=== PATIENT | female | born 1995 | race Caucasian/White ===

== ENCOUNTER 2018-08-08 03:09 | Emergency (ER) | payer OTHER ==
[2018-08-08 03:18] VITALS: BP 100/68
--- NOTE | 2018-08-08 04:03 | ER Document Report ---
ED General - General Chief Complaint: Leg Pain Stated Complaint: LEG PROBLEM Time Seen by Provider: 08/08/18 03:53 Notes: Patient is a 23-year-old female presents with complaint of pain behind her right knee. Pain started tonight. Said came on suddenly. She says that does not feel like a muscular pain to her. She has not felt pain like this before. She is concerned because she was started recently on control. She denies any chest pain. No shortness of breath. No other complaints at this time. TRAVEL OUTSIDE OF THE [place] IN LAST 30 DAYS: No - Related Data Allergies/Adverse Reactions: ciprofloxacin [From Cipro] Allergy (Verified 08/08/18 03:13) codeine Allergy (Verified 08/08/18 03:13) sulfamethoxazole [From Bactrim] Allergy (Verified 08/08/18 03:13) trimethoprim [From Bactrim] Allergy (Verified 08/08/18 03:13) Past Medical History - Social History Smoking Status: Unknown if Ever Smoked Frequency of alcohol use: None Drug Abuse: None Family History: Reviewed & Not Pertinent Review of Systems - Review of Systems Notes: My Normal Review Basic REVIEW OF SYSTEMS: CONSTITUTIONAL : Denies fever, chills, or sweats. Denies recent illness. CARDIOVASCULAR: Denies chest pain. RESPIRATORY: Denies cough, cold, or chest congestion. Denies shortness of breath, difficulty breathing, or wheezing. GASTROINTESTINAL: Denies abdominal pain. Denies nausea, vomiting, or diarrhea. Denies constipation. Last BM: MUSCULOSKELETAL: Behind right knee. SKIN: Denies rash or skin lesions. NEUROLOGICAL: Denies sensory or motor loss. ALL OTHER SYSTEMS REVIEWED AND NEGATIVE. Physical Exam - Vital signs Vitals: Temp Pulse Resp BP Pulse Ox 98.6 F 66 16 100/68 98 08/08/18 03:16 08/08/18 03:16 08/08/18 03:16 08/08/18 03:16 08/08/18 03:16 - Notes Notes: General Appearance: Well nourished, alert, cooperative, no acute distress, no obvious discomfort. Well-appearing. Vitals: reviewed, See vital signs table. Extremities: strength 5/5 in all extremities, good pulses in all extremities, pain is not reproducible to palpation behind the right leg. No edema in the legs. No tenderness to palpation of either legs. Skin: warm, dry, appropriate color, no rash Neuro: speech clear, oriented x 3, normal affect, responds appropriately to questions. Course - Re-evaluation Re-evalutation: 08/08/18 04:33 Informed patient I agree that we do have to do a test to rule out a blood clot. 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 She requests an outpatient test to be performed. I did write a prescription for an outpatient venous Doppler to be performed. I offered her Lovenox and explained to her the risks and benefits of Lovenox. Patient says she would rather not have Lovenox at this time and wants to wait to see the test results before going forward with any treatment. Patient will be discharged was strongly encouraged to return to ER immediately if she has worsening pain, any chest pain, shortness of breath, or leg swelling. Patient agrees the plan will be discharged home. Dictation of this chart was performed using voice recognition software; therefore, there may be some unintended grammatical errors. - Vital Signs Vital signs: Temp Pulse Resp BP Pulse Ox 98.6 F 66 16 100/68 98 08/08/18 03:16 08/08/18 03:16 08/08/18 03:16 08/08/18 03:16 08/08/18 03:16 Discharge - Discharge Clinical Impression: Leg pain Qualifiers: Laterality: right Qualified Code(s): M79.604 - Pain in right leg Condition: Good Disposition: HOME, SELF-CARE Additional Instructions: You need a venous Doppler ultrasound to rule out the possibility of blood clot in your leg. Please call the number on the prescription. You may get a voi cemail. If you do get a voicemail please leave a message to have him call you back. If you do not hear back from them after 1-2 hours please call the number again. Please return to ER immediately if you have chest pain, difficulty breathing, swelling in your leg, or worsening pain in your leg. Forms: Follow-Up Outpatient Testing
--- NOTE | 2018-08-08 16:51 | ER Document Report ---
Doctor's Note Notes: 08/08/18 16:50 Received call from cardiovascular lab, that venous duplex of the right lower extremity was negative on this patient, she was discharged home from the cardiovascular lab.
== END 2018-08-08 04:05 | disposition home or self-care (01) ==
LOC: ER 03:09
DX: M79.604 Pain in right leg (principal); M25.561 Pain in right knee
CPT/HCPCS: 99283

== ENCOUNTER → 2018-08-08 | Outpatient (CLI) | payer OTHER ==
--- NOTE | 2018-08-09 01:24 | RADIOLOGY REPORT (SQ) ---
EXAM DESCRIPTION: US EXTREMITY VEINS UNILATERAL RIGHT COMPLETED DATE/TME: 08/08/2018 00:00 CLINICAL HISTORY: 23 years, Female, RLE PAIN COMPARISON: None. TECHNIQUE: LIMITATIONS: None. FINDINGS: The common femoral, femoral, popliteal, posterior tibial and peroneal veins are patent and compressible. Venous Doppler waveforms are unremarkable. IMPRESSION: No evidence of deep venous thrombosis. copyright 2010 [employer]- All Rights Reserved
== END ==
LOC: SP 15:51
PROVIDERS: ATTEND Emergency Medicine
DX: M79.604 Pain in right leg (principal)
CPT/HCPCS: 93971

== ENCOUNTER 2019-05-19 16:25 | Emergency (ER) | payer OTHER ==
[2019-05-19 16:29] VITALS: BP 118/80
--- NOTE | 2019-05-19 16:49 | ER Document Report ---
HPI - HPI Patient complains to provider of: rash Time Seen by Provider: 05/19/19 16:43 Onset: Other Onset/Duration: Worse Quality of pain: Throbbing Severity: Moderate Pain Level: 3 Context: 24-year-old female presented to ED for flank area. These are not shingles. She states she has checked for bedbugs and she does not know what is going on. Patient is alert oriented respirations regular and unlabored no other symptoms noted. Associated Symptoms: Other Exacerbated by: Other - palpation Relieved by: Denies Similar symptoms previously: Yes Recently seen / treated by doctor: Yes - ROS ROS below otherwise negative: Yes - CONSTITUTIONAL Constitutional: DENIES: Fever, Chills - EENT EENT: DENIES: Sore Throat, Ear Pain, Nasal Drainage-Clear, Nasal Drainage- Purulent, Congestion, Eye problems - NEURO Neurology: DENIES: Headache, Weakness, Vision blurred, Dizzinesss / Vertigo - CARDIOVASCULAR Cardiovascular: DENIES: Chest pain - RESPIRATORY Respiratory: DENIES: Trouble Breathing, Coughing - GASTROINTESTINAL Gastrointestinal: DENIES: Abdominal Pain, Nausea, Patient vomiting, Diarrhea, Constipation, Black / Bloody Stools - URINARY Urinary: DENIES: Dysuria, Urgency, Frequency - REPRODUCTIVE Reproductive: DENIES: :, Postmenopausal, Abnormal bleeding / discharge - MUSCULOSKELETAL Musculoskeletal: DENIES: Extremity pain, Back Pain, Neck Pain, Swelling - DERM Skin Color: Normal Skin Problems: Rash Past Medical History - General Information source: Patient - Social History Smoking Status: Never Smoker Frequency of alcohol use: None Drug Abuse: None Lives with: Family Family History: Reviewed & Not Pertinent Patient has suicidal ideation: No Patient has homicidal ideation: No - Past Medical History Cardiac Medical History: Reports: None Pulmonary Medical History: Reports: Hx Asthma EENT Medical History: Reports: None Neurological Medical History: Reports: None Endocrine Medical History: Reports: None Renal/ Medical History: Reports: None Malignancy Medical History: Reports: None GI Medical History: Reports: None Musculoskeletal Medical History: Reports None Skin Medical History: Reports None Psychiatric Medical History: Reports: None Traumatic Medical History: Reports: None Infectious Medical History: Reports: None Past Surgical History: Reports: Hx Tonsillectomy - Immunizations Immunizations up to date: Yes Hx Diphtheria, Pertussis, Tetanus Vaccination: Yes Vertical Provider Document - CONSTITUTIONAL Agree With Documented VS: Yes Exam Limitations: No Limitations General Appearance: WD/WN, No Apparent Distress - INFECTION CONTROL TRAVEL OUTSIDE OF THE [place] IN LAST 30 DAYS: No - HEENT HEENT: Atraumatic, Normal ENT Exam, Normocephalic, PERRLA - NECK Neck: Normal Inspection, Supple, Thyroid Normal - RESPIRATORY Respiratory: Breath Sounds Normal, No Respiratory Distress, Chest Non-Tender - CARDIOVASCULAR Cardiovascular: Regular Rate, Regular Rhythm - GI/ABDOMEN Notes: Insect bites to bilateral flank abdomen area a couple insect bites on the buttocks - MUSCULOSKELETAL/EXTREMETIES Musculoskeletal/Extremeties: MAEW, FROM, Non-Tender - NEURO Level of Consciousness: Awake, Alert, Appropriate Motor/Sensory: No Motor Deficit, No Sensory Deficit Deep Tendon Reflexes: 2+ - DERM Integumentary: Warm, Dry, Rash - insect bites bilateral flank couple on the buttocks Course - Re-evaluation Re-evalutation: 05/19/19 18:25 She was given instructions on cleaning well with soap and water ibuprofen and Tylenol Zyrtec and Benadryl. Patient was instructed to follow-up with her primary doctor if she continued to have symptoms. Patient verbalized understanding and agreement with treatment plan patient was discharged home. - Vital Signs Vital signs: Temp Pulse Resp BP Pulse Ox 98.0 F 78 20 118/80 100 05/19/19 16:28 05/19/19 16:28 05/19/19 16:28 05/19/19 16:28 05/19/19 16:28 Discharge - Discharge Clinical Impression: Insect bite Qualifiers: Encounter type: initial encounter Site of insect bite: abdominal wall Qualified Code(s): S30.861A - Insect bite (nonvenomous) of abdominal wall, initial encounter Condition: Stable Disposition: HOME, SELF-CARE Instructions: Family Physicians / Practices Additional Instructions: Insect Bites You have been bitten by an insect. These bites can cause two types of swelling: an initial swelling due to insect saliva or injected poison, and a late reaction due to your body's allergic reaction. This initial local reaction may be uncomfortable but is not dangerous. Often there's an itchy "hive" at the bite location. This is treated with antihistamines, cold compresses, and resting the affected body part. The later reaction often develops about the second day. The entire area becomes very swollen, red, itchy, and tender. This is an allergic reaction. Your body is attacking the leftover insect saliva or venom. This type of allergy is unpleasant, but not dangerous. We treat this swelling with cortisone-type medicine. Sometimes we use antibiotics if we're worried about infection. Antihistamines help with the itch. If you develop a fever, chills, a red streak, or swollen glands in the area of the bite, infection may be starting. Return at once. Antihistamines An antihistamine has been prescribed to control your symptoms. Antihistamines are used for many reasons, including itching, watering eyes, runny nose, allergic swelling, hives, and insect stings. Antihistamines may cause drowsiness, especially with the first dose. Do not operate machinery or drive while under the effects of the medication. Other common side effects include dry mouth and eyes. In older persons, antihistamines can occasionally cause urinary retention, constipation, and trouble focusing the eyes. Do not combine the medication with alcohol, or with any other medication without talking to your doctor. Acetaminophen Acetaminophen may be taken for pain relief or fever control. It's much safer than aspirin, offering a wider range of "safe" dosages. It is safe during . Some brand names are Tylenol, Panadol, Datril, Anacin 3, Tempra, and Liquiprin. Acetaminophen can be repeated every four hours. The following are maximum recommended dosages: WEIGHT Dose Drops Elixir Chewable(80mg) (LBS.) drprs=droppers tsp=teaspoon 6 40 mg .4 ml (1/2) 6-11 80 mg .8 ml (full) 1/2 tsp 1 tab 12-16 120 mg 1 1/2 drprs 3/4 tsp 1 1/2 tabs 17-23 160 mg 2 drprs 1 tsp 2 tabs 24-30 240 mg 3 drprs 1 1/2 tsp 3 tabs 30-35 320 mg 2 tsp 4 tabs 36-41 360 mg 2 1/4 tsp 4 1/2 tabs 42-47 400 mg 2 1/2 tsp 5 tabs 48-53 480 mg 3 tsp 6 tabs 54-59 520 mg 3 1/4 tsp 6 1/2 tabs 60-64 560 mg 3 1/2 tsp 7 tabs 65-70 600 mg 3 3/4 tsp 7 1/2 tabs 71-76 640 mg 4 tsp 8 tabs 77-82 720 mg 4 1/2 tsp 9 tabs 83-88 800 mg 5 tsp 10 tabs >89 pounds or adults 650 mg to 900 mg Acetaminophen can be repeated every four hours. Maximum daily dose not to exceed 4000 mg. These maximum recommended dosages are slightly higher than the dosages written on the product container, but these dosages are very safe and well below the toxic dosage for acetaminophen. FOLLOW-UP CARE: If you have been referred to a physician for follow-up care, call the physicians office for an appointment as you were instructed or within the next two days. If you experience worsening or a significant change in your symptoms, notify the physician immediately or return to the Emergency Department at any time for re-evaluation. Forms: Return to Work
== END 2019-05-19 17:05 | disposition home or self-care (01) ==
LOC: ER 16:25
DX: S30.861A Insect bite (nonvenomous) of abdominal wall, initial encounter (principal); S30.860A Insect bite (nonvenomous) of lower back and pelvis, initial encounter; W57.XXXA Bitten or stung by nonvenomous insect and other nonvenomous arthropods, initial encounter; J45.909 Unspecified asthma, uncomplicated
CPT/HCPCS: 99282